=== PATIENT | male | born 1995 | race Caucasian/White ===

== ENCOUNTER 2017-03-22 03:06 | Emergency (ER) | payer BC ==
[~2017-03-22] VITALS: Ht 167.6 cm; Wt 84.4 kg
[2017-03-22 03:11] VITALS: TEMP 37; Ht 167.6 cm; Wt 84.4 kg
[2017-03-22] MEDS ORDERED: ESCI1TAB10 PO (03:33)
[2017-03-22] MEDS ORDERED: AMPH15CA7 PO (03:33)
[2017-03-22] MEDS ORDERED: ACETAMINOPHEN 500 MG TAB PO STA (03:53)
[2017-03-22 04:34] LABS: BUN/CREATININE RATIO 7.7 (10-20); CALCIUM 8.6 mg/dl (8.5-10.1); CREATININE 1.02 mg/dl (0.60-1.40); POTASSIUM 3.7 mmol/L (3.5-5.1)
[2017-03-22] MEDS ORDERED: CEFAZOLIN SOD 1000MG/5 ML IV PUSH IV STA (04:57)
[2017-03-22] MEDS ORDERED: LIDO/EPINEPHRINE/SOD BICARB 20 ML VIAL INFIL ONE (05:15)
[2017-03-22] MEDS ORDERED: CEPH500C2 PO (07:30)
[2017-03-22 07:35] VITALS: BP 112/81; PULSE 112; O2SAT 97
--- NOTE | 2017-03-22 07:53 | EMERGENCY ROOM VISIT NOTE ---
ED Visit Note First contact with patient: 03:26 Patient seen and examined at bedside with the resident. Patient with extensive laceration through the nailbed of the right fourth digit. Distal tuft fracture noted on x-ray. Patient covered with antibiotics due to open fracture. Procedure note: A digital block was performed on the patient's right fourth digit using 1% lidocaine without epinephrine. One and a half cc of lidocaine was injected on each side of the fourth digit near the MCP joint. After adequate anesthesia was achieved, the area was soaked and cleaned so further examination could be performed. Patient found to have a 1.5 cm laceration along the medial aspect of the digit distally with a disrupted fingernail and extension of the laceration into the nailbed 1cm. The fingernail was subsequently moved and was intact. 3 interrupted sutures of 5-0 nylon were placed along the medial aspect to repair the laceration. The nailbed was repaired with 3 interrupted sutures of 5-0 Vicryl area. The fingernail was then replaced over the nailbed and sewn down with 2 sutures on each side of 5-0 nylon. Patient tolerated the procedure well. The area was dressed and then splinted. Patient given instructions on need for close follow-up with orthopedics. Patient placed on antibiotics due to the distal tuft fracture. Discussed with patient at length symptoms to watch and return for, risks of infection or long-term disability due to his injury, importance of follow-up with orthopedics, he verbalized understanding of all this was agreeable with plan.
--- NOTE | 2017-03-22 08:49 | DIAGNOSTIC IMAGING REPORT ---
RIGHT FOURTH FINGER 3 VIEWS CLINICAL HISTORY: Crushing injury. FINDINGS: 3 views of the right fourth finger are obtained. No prior studies are available for comparison at the time of dictation. The skeletal structures are well mineralized. There is a comminuted and minimally distracted avulsion fracture through the tuft of the fourth distal phalanx. Overlying soft tissue edema is noted. No additional fracture is seen. The fourth metacarpophalangeal and interphalangeal joints are maintained. No radiodense foreign body is identified. IMPRESSION: Fracture through the tuft of the fourth distal phalanx as above. Electronically signed by: Dillon Kent M.D. 03/22/2017 8:47 AM Dictated Date/Time: 03/22/2017 8:46 AM
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
== END 2017-03-22 07:36 | disposition home or self-care (01) ==
LOC: C.EDB 03:07 → C.EDC 07:36
DX: S61.214A Laceration without foreign body of right ring finger without damage to nail, initial encounter (principal); W23.1XXA Caught, crushed, jammed, or pinched between stationary objects, initial encounter

== ENCOUNTER → 2017-04-30 | Outpatient (CLI) | payer BC ==
[~2017-04-30] MED LIST: AMPH15CA7 PO; ESCI1TAB10 PO
--- NOTE | 2017-04-30 11:57 | DIAGNOSTIC IMAGING REPORT ---
R FINGER(S) MIN 2 VIEWS CLINICAL HISTORY: 21 years-old Male presenting with RIGHT 4TH FINGER WOUND RE-CHECK. TECHNIQUE: Frontal, oblique, and lateral views of the right fourth finger were obtained. COMPARISON: 03/22/2017. FINDINGS: Unchanged appearance of the minimally displaced transversely oriented fracture through the tuft of the distal phalanx of the fourth finger. No new malalignment. The proximal interphalangeal joint is preserved. No significant soft tissue swelling. No other fracture or osseous abnormality identified. IMPRESSION: Stable appearance of the fracture of the tuft of the distal phalanx of the right fourth finger. Electronically signed by: Martinez Downey M.D. 04/30/2017 11:56 AM Dictated Date/Time: 04/30/2017 11:54 AM
== END | disposition home or self-care (01) ==
LOC: C.RDSM 13:25
PROVIDERS: ATTEND Physician Assistant
DX: Z51.89 Encounter for other specified aftercare (principal)